=== PATIENT | female | born 2000 | race Two or more races ===

== ENCOUNTER → 2025-01-23 | Outpatient (CLI) | payer MEDICAID, SELFPAY ==
--- NOTE | 2025-01-23 14:15 | XR_ITS ---
Examination: Complete OB ultrasound greater than 14 weeks Date and time of exam: January 23, 2025, 1424 hours INDICATIONS: Supervision high risk . Findings: Viable intrauterine single fetus with single amniotic sac presentation cephalic spine maternal left Cardiac motion 145 BPM Placenta fundal grade 1 Umbilical cord insertion seen Amniotic fluid 8.6 cm Cervix 3.8 cm Right ovary 3.2 cm arterial flow Left ovary 3.0 cm arterial flow. Composite estimated gestational age based on BPD, head circumference, abdominal circumference, femur length is 28 weeks 3 days, estimated weight 1208 g. Survey of intracranial anatomy, spinal anatomy, abdominal anatomy, four-chamber heart performed with no abnormalities identified. Impression: Viable intrauterine gestation cephalic presentation.
== END | disposition home or self-care (01) ==
PROVIDERS: PCP Obstetrics & Gynecology; Referring Provider Obstetrics & Gynecology; Visit Provider Obstetrics & Gynecology
DX: O09.92 Supervision of high risk pregnancy, unspecified, second trimester (principal); Z3A.28 28 weeks gestation of pregnancy
CPT/HCPCS: 76805

== ENCOUNTER 2025-03-25 21:29 | Observation (INO) | payer MEDICAID, SELFPAY ==
[2025-03-25] VITALS (30 sets, daily range): BP systolic 97–106; BP diastolic 53–56; PULSE 72–92; RESP 18–98; TEMP 36.8; O2SAT 94–99; BMI 28.0
--- NOTE | 2025-03-25 22:05 | XR_ITS ---
Examination: Retroperitoneal ultrasound, complete Technique: Multiple high resolution grayscale images of the retroperitoneum obtained, including kidneys and bladder. Exam date and time: March 25, 2025, 10:30 p.m. INDICATIONS: Blood in urine today FINDINGS: Right kidney 11.4 cm renal cortex 2.3 cm Left kidney 11.3 cm renal cortex 1.8 cm No renal calculi, no hydronephrosis No diagnostic visualization bladder IMPRESSION: No renal calculi, no hydronephrosis
--- NOTE | 2025-03-25 22:06 | XR_ITS ---
Examination: Complete OB ultrasound greater than 14 weeks Date and time of exam: March 25, 2025, 10:10 p.m. INDICATIONS: Decreased movement today Findings: Viable intrauterine single fetus with single amniotic sac presentation cephalic Cardiac motion 155 bpm Placenta posterior grade 3 Umbilical cord insertion 3 vessel seen Amniotic fluid 10.5 cm Suspicious for minimal hydronephrosis Cervix 3.7 cm Ovaries obscured by bowel gas. Composite estimated gestational age based on BPD, head circumference, abdominal circumference, femur length is 37 weeks 5 days Estimated weight 3214 g. Survey of intracranial anatomy, spinal anatomy, abdominal anatomy, four-chamber heart performed with no abnormalities identified. Impression: Viable intrauterine gestation cephalic presentation Estimated gestational age 37 weeks 5 days.
[2025-03-25 22:29] LABS: Collection Type, Urine Catheter; Squamous Epithelial Cell,Urine 0 /hpf (0-5)
[2025-03-25 22:35] LABS: Bilirubin,Urine Negative (Negative); Blood,Urine 3+ (Negative); Calcium Oxalate Crystals,Urine 3+; Clarity,Urine Turbid (Clear/Hazy); Color,Urine Dark-Red (Lt Yel-Yel); Glucose, Urine Negative (Negative); Ketones,Urine Trace (Negative); Leukocyte Esterase,Urine Positive (Negative); Nitrite,Urine Negative (Negative); PH,Urine 6.0 (5.0-7.0); Protein,Urine 1+ (Neg - Trace); RBC,Urine 3805 /hpf (0-3); Specific Gravity,Urine 1.019 (1.001-1.035); Urobilinogen,Urine Negative mg/dL (0.0-1.0); WBC,Urine 93 /hpf (0-5)
[2025-03-26 00:02] VITALS: PULSE 72; O2SAT 97
[2025-03-26 00:05] LABS: Basophils # (Auto) 0.0 Thou/mm3 (0.0-0.2); Basophils % (Auto) 0 % (0-2.5); Eosinophils # (Auto) 0.0 Thou/mm3 (0.0-0.5); Eosinophils % (Auto) 1 % (0-10); Hematocrit 31.4 % (36.0-46.0); Hemoglobin 11.1 g/dL (12.0-16.0); Immature Granulocytes Auto 0.05 Thou/mm3 (0.00-0.00); Lymphocytes # (Auto) 2.1 Thou/mm3 (1.0-4.8); Lymphocytes % (Auto) 31 % (10-50); Mean Corpuscular HGB Conc 35.4 g/dl (31.0-37.0); Mean Corpuscular Hemoglobin 32.9 pg (25.0-35.0); Mean Corpuscular Volume 93 fL (80-100); Monocytes # (Auto) 0.4 Thou/mm3 (0.0-0.8); Monocytes % (Auto) 6 % (0-12); Neutrophils # (Auto) 4.0 Thou/mm3 (1.8-7.7); Neutrophils % (Auto) 61 % (37-80); Nucleated Red Blood Cell # 0.00 Thou/mm3 (0.00-0.00); Nucleated Red Blood Cell % 0 /100 WBC (0); Platelet Count 114 Thou/mm3 (140-440); RDW Standard Deviation 44.5 fL (36.4-46.3); Red Blood Count 3.37 Miln/mm3 (4.00-5.20); White Blood Count 6.6 Thou/mm3 (3.6-11.0)
[2025-03-26 00:07] VITALS: PULSE 72; O2SAT 97
[2025-03-26 00:12] VITALS: PULSE 71; O2SAT 99
[2025-03-26 00:17] VITALS: PULSE 73; O2SAT 97
--- NOTE | 2025-03-26 14:00 | ESPR_ITS ---
Documentation for date of: 03/26/25 OB Labor Progress Note Pelvic Exam Dilation (cm): CLOSED Effacement (%): THICK station: -2 Amniotic membrane status: Intact Contractions Monitor mode: External Contraction frequency: none Contraction intensity: Mild Status status: Category l Assessment and Plan Comments: Triage Marla is a 24yo with SIUP at 36+wk presenting to L&D for bloody urine. This occurred for the first time around 1800, has never happened before. She is sure it is not vaginal bleeding. She has no burning/urge/increase frequency of urination. No back pain. No abdominal pain. She notes no painful/regular ctx, no vaginal bleeding, no loss of fluid. Normal movement. PMhx/PNC significant for: -Hx of section x2, last was 06/2023 -New diagnosis UTI -New diagnosis mild gestational thrombocytopenia (hx of this in prior as well) -PNC with Dr. Michelle AGEE negative other than what was described above. Vitals wnl, afebrile General: well developed, well nourished, no acute distress, conversant Cardiac: normal heart rate Lungs: breathing without distress Abdomen: soft, gravid, non-tender, no rebound or guarding Extremities: no edema BLE SCE: closed/thick/high (no vaginal bleeding noted) NST: Reactive, +accels, no decels, mod sai [place]: no ctx pattern Labs: Cath UA shows: 3k RBC, 93 WBC, +LE, 3+ calcium oxylate CBC: Hgb 11.1, plt 114 Radiology: Renal ultrasound: Right kidney 11.4 cm renal cortex 2.3 cm Left kidney 11.3 cm renal cortex 1.8 cm No renal calculi, no hydronephrosis No diagnostic visualization bladder IMPRESSION: No renal calculi, no hydronephrosis ultrasound: Viable intrauterine single fetus with single amniotic sac presentation cephalic Cardiac motion 155 bpm Placenta posterior grade 3 Umbilical cord insertion 3 vessel seen Amniotic fluid 10.5 cm Suspicious for minimal hydronephrosis Cervix 3.7 cm Ovaries obscured by bowel gas. Composite estimated gestational age based on BPD, head circumference, abdominal circumference, femur length is 37 weeks 5 days. Estimated weight 3214 g. Survey of intra-cranial anatomy, spinal anatomy, abdominal anatomy, four-chamber heart performed with no abnormalities identified. Impression: Viable intrauterine gestation cephalic presentation Estimated gestational age 37 weeks 5 days. Assessment: Marla is a 24yo with SIUP at 36+wk with suspected UTI based on UA. No evidence of uterine rupture. Reassuring assessment. Vitals wnl, benign exam. Plan: -Rx keflex 500mg PO QID x 7 days sent to pharmacy -Urine culture ordered, pending. Patient instructed to discuss result with her OB provider at next follow up visit. -Follow up at routine OB visit as scheduled -Return precautions discussed Apple Quinn MD
== END 2025-03-26 00:32 | disposition home or self-care (01) ==
PROVIDERS: Admitting Provider Obstetrics & Gynecology; Visit Provider Obstetrics & Gynecology
DX: O36.8130 Decreased fetal movements, third trimester, not applicable or unspecified (principal); O26.893 Other specified pregnancy related conditions, third trimester; R31.9 Hematuria, unspecified; R10.20 Pelvic and perineal pain unspecified side; Z3A.37 37 weeks gestation of pregnancy
CPT/HCPCS: 36415; 59025; 59899; 76770; 76805; 81001; 85025; 86850; 86900; 86901; 87086; A9270

== ENCOUNTER 2025-04-16 12:16 | Outpatient (CLI) | payer MEDICAID, SELFPAY ==
--- NOTE | 2025-04-16 12:22 | XR_ITS ---
Examination: Complete OB ultrasound greater than 14 weeks Date and time of exam: April 16, 2025, 1236 hours INDICATIONS: Limited care, history blood in urine Findings: Viable intrauterine single fetus with single amniotic sac presentation cephalic Cardiac motion 144 bpm Placenta posterior maternal right grade 3 Umbilical cord insertion 3 vessel seen Amniotic fluid index 16.7 cm spine maternal left Ovaries obscured by bowel gas . Composite estimated gestational age based on BPD, head circumference, abdominal circumference, femur length is 39 weeks 4 days Estimated weight 3683 g. Survey of intracranial anatomy, spinal anatomy, abdominal anatomy, four-chamber heart performed with no abnormalities identified. Impression: Viable intrauterine gestation cephalic presentation.
--- NOTE | 2025-04-16 12:22 | XR_ITS ---
Examination: Biophysical profile, ultrasound Date and time of exam: April 16, 2025, 1231 hours INDICATIONS: Diagnosis limited care, history blood in urine Technique: Multiple transabdominal sonographic images of the pelvis abdomen obtained. Attention is directed to the breathing movement, gross body movement, amniotic fluid volume and tone. Findings: Amniotic fluid index 16.7 cm Total biophysical profile is 8 of 8. breathing movement is 2. Gross body movement is 2. tone is 2. Qualitative amniotic fluid volume is 2 Impression: Biophysical profile is 8 of 8.
[2025-04-16 12:52] VITALS: BP 106/56; PULSE 71; RESP 20; TEMP 36.5; BMI 29.4
[2025-04-16 12:53] VITALS: BP 106/56; PULSE 71
[2025-04-16 13:55] LABS: Basophils # (Auto) 0.0 Thou/mm3 (0.0-0.2); Basophils % (Auto) 0 % (0-2.5); Eosinophils # (Auto) 0.0 Thou/mm3 (0.0-0.5); Eosinophils % (Auto) 0 % (0-10); Hematocrit 33.1 % (36.0-46.0); Hemoglobin 11.6 g/dL (12.0-16.0); Immature Granulocytes Auto 0.06 Thou/mm3 (0.00-0.00); Lymphocytes # (Auto) 1.7 Thou/mm3 (1.0-4.8); Lymphocytes % (Auto) 24 % (10-50); Mean Corpuscular HGB Conc 35.0 g/dl (31.0-37.0); Mean Corpuscular Hemoglobin 33.0 pg (25.0-35.0); Mean Corpuscular Volume 94 fL (80-100); Monocytes # (Auto) 0.5 Thou/mm3 (0.0-0.8); Monocytes % (Auto) 6 % (0-12); Neutrophils # (Auto) 4.8 Thou/mm3 (1.8-7.7); Neutrophils % (Auto) 68 % (37-80); Nucleated Red Blood Cell # 0.00 Thou/mm3 (0.00-0.00); Nucleated Red Blood Cell % 0 /100 WBC (0); Platelet Count 116 Thou/mm3 (140-440); RDW Standard Deviation 46.2 fL (36.4-46.3); Red Blood Count 3.51 Miln/mm3 (4.00-5.20); White Blood Count 7.0 Thou/mm3 (3.6-11.0)
[2025-04-16 14:37] LABS: Syphilis Nonreactive (Nonreactive)
--- NOTE | 2025-04-16 20:11 | PD.LDPN ---
Documentation for date of: 04/16/25 OB Labor Progress Note Pelvic Exam Amniotic membrane status: Intact Contractions Monitor mode: External Contraction frequency: IRRIT/OCC Status status: Category l Assessment and Plan Comments: Triage Note Marla is a 24yo with SIUP at 39&2wk presenting to L&D per Dr. Martinez's instruction to coordinate timing of RLTCS. He had referred her to [place], but she has not yet been able to be seen and since she is now 39wk, delivery is indicated. No regular/painful ctx, no lof, no vaginal bleeding. Normal movement. PMhx/PNC significant for: -Hx of section x2, last was 06/[address] Verma -Late to care at 22wk (dating by sure LMP c/w 28wk ultrasound) -Mild gestational thrombocytopenia (hx of this in prior as well)- plt on 04/16: 116, stable -Diagnosis of UTI on 03/26 when presented with episode of bloody urine, treated with keflex. Ucx no growth. -PNC with Dr. Martinez ROS negative other than what was described above. Vitals wnl, afebrile General: well developed, well nourished, no acute distress, conversant Cardiac: normal heart rate Lungs: breathing without distress Abdomen: soft, gravid, non-tender, no rebound or guarding Extremities: no edema BLE NST: Reactive, +accels, no decels, mod sai [place]: irregular ctx Labs: hgb 11.6 plt 116 O pos RPR non-reactive Radiology: Examination: Complete OB ultrasound greater than 14 weeks Date and time of exam: April 16, 2025, 1236 hours INDICATIONS: Limited care, history blood in urine Findings: Viable intrauterine single fetus with single amniotic sac presentation cephalic Cardiac motion 144 bpm Placenta posterior maternal right grade 3 Umbilical cord insertion 3 vessel seen Amniotic fluid index 16.7 cm spine maternal left Ovaries obscured by bowel gas Composite estimated gestational age based on BPD, head circumference, abdominal circumference, femur length is 39 weeks 4 days Estimated weight 3683 g. Survey of intracranial anatomy, spinal anatomy, abdominal anatomy, four-chamber heart performed with no abnormalities identified. Impression: Viable intrauterine gestation cephalic presentation. --- Examination: Biophysical profile, ultrasound Date and time of exam: April 16, 2025, 1231 hours INDICATIONS: Diagnosis limited care, history blood in urine Technique: Multiple transabdominal sonographic images of the pelvis abdomen obtained. Attention is directed to the breathing movement, gross body movement, amniotic fluid volume and tone. Findings: Amniotic fluid index 16.7 cm Total biophysical profile is 8 of 8. breathing movement is 2. Gross body movement is 2. tone is 2. Qualitative amniotic fluid volume is 2 Impression: Biophysical profile is 8 of 8. Assessment: Marla is a 24yo with SIUP at 39&2wk with reassuring status today. Growth concordant with stated gestational age. Vitals wnl, benign exam. Plan: -Due to very busy L&D unit and full unit, unable to perform RLTCS today. Discussed with Dr. Peres who is amenable to performing RLTCS tomorrow at 1730. Patient was booked for that time and instructed to be NPO 8 hours prior, arrive 2 hours prior to scheduled time. -Return precautions discussed Apple Quinn MD
== END 2025-04-16 14:04 | disposition home or self-care (01) ==
LOC: S4S1 12:18 → S4SX 12:19
PROVIDERS: Referring Provider Obstetrics & Gynecology; Visit Provider Obstetrics & Gynecology
DX: O09.33 Supervision of pregnancy with insufficient antenatal care, third trimester (principal); Z3A.39 39 weeks gestation of pregnancy
CPT/HCPCS: 36415; 59025; 76805; 76819; 85025; 86780; 86850; 86900; 86901

== ENCOUNTER 2025-04-17 15:45 | Inpatient (IN) | payer MEDICAID, SELFPAY ==
[2025-04-17] VITALS (39 sets, daily range): BP systolic 98–116; BP diastolic 52–70; PULSE 65–90; RESP 16–97; TEMP 37.1; O2SAT 98–100; BMI 31.3
[2025-04-17] MEDS: RINGERS LACTATED 1000 ML 1,000 ML 999 ML IV (16:44)
[2025-04-17 17:22] LABS: Collection Type, Urine Clean Catch; WBC,Urine 0 /hpf (0-5)
[2025-04-17 17:37] LABS: Bilirubin,Urine Negative (Negative); Blood,Urine 3+ (Negative); Color,Urine Dark-Brown (Lt Yel-Yel); Glucose, Urine Negative (Negative); Ketones,Urine Trace (Negative); Leukocyte Esterase,Urine Positive (Negative); Nitrite,Urine Negative (Negative); PH,Urine 7.0 (5.0-7.0); Protein,Urine 2+ (Neg - Trace); RBC,Urine 8068 /hpf (0-3); Specific Gravity,Urine 1.026 (1.001-1.035); Squamous Epithelial Cell,Urine 6 /hpf (0-5); Urobilinogen,Urine Negative mg/dL (0.0-1.0)
[2025-04-17 17:38] LABS: Clarity,Urine Cloudy (Clear/Hazy)
--- NOTE | 2025-04-17 18:12 | PD.LDHP ---
Documentation for date of: 04/17/25 OB Labor/Induct. HPI History of Present Illness Chief complaint: Hematuria : 3 Para: 2 Term pregnancies: 2 pregnancies: 0 Living children: 2 History of Abortions: Spontaneous and Elective: 0 History of Vaginal deliveries: 0 History of sections: Yes History of : No VEL: 04/21/25 Gestational Age (weeks): 39 Gestational Age (days): 4 History of present illness: Vianca is a 24-year-old 3 para 2-0-0-2 at 39 weeks and 4 days with estimated due date of 04/21/2025 who is presenting to labor and delivery with complaints of hematuria. Patient has a history of 2 sections, she was recently treated for UTI and she just finished her course of antibiotics. Patient was supposed to present for scheduled repeat tomorrow morning at 7:30 AM. She denies any leakage of fluid or vaginal bleeding. She reports adequate movements. She denies any fevers or chills. Patient received care at the [facility]. She was transferred to the [facility] INSTRUMENT SUPERVISOR clinic for delivery but she was never able to establish care. All records were reviewed as scanned in History of Present Adequate Care: Yes Past Medical History Surgical History SURGICAL: Positive Section Meds Home Medications and Allergies Home Medications ?Medication ?Instructions ?Recorded ?Confirmed ?Type vits no.130-ferrous fum 1 tab PO QDAY 06/24/23 04/16/25 History 27 mg iron-folic acid 800 mcg tablet ( Vitamin) Allergies Allergy/AdvReac Type Severity Reaction Status Date / Time No Known Allergies Allergy Verified 04/16/25 14:44 OB Exam Physical Exam Vital signs: Temp Pulse Resp BP Pulse Ox 98.8 F 85 16 111/70 99 04/17/25 15:45 04/17/25 18:01 04/17/25 15:45 04/17/25 18:01 04/17/25 18:11 Constitutional Constitutional: no acute distress Routine HEENT Exam Head: Present normocephalic and atraumatic Eye: Present EOMI and PERRL ENT: Present mucous membranes moist Routine Neck Exam Neck: Present supple and trachea midline Routine Cardiovascular Exam Cardiovascular: Present RRR Routine Abdominal Exam Abdominal: Present soft and normoactive bowel sounds Detailed Labor and Delivery Exam Baseline heart rate: 135 monitor accelerations: 15x15 monitor decelerations: None Routine Extremities Exam Extremities: Present full ROM Routine Skin Exam Skin: Present intact, dry and warm Routine Neurological Exam Neurological: Present alert, oriented X3 and CN II-XII intact Routine Psychiatric Exam Psychiatric: Present normal affect and normal thought process OB Results Labs Labs: Urine 04/17/25 Range/Units 17:14 Urine Color Dark-Brown (Lt Yel-Yel) Urine Clarity Cloudy A (Clear/Hazy) Urine pH 7.0 (5.0-7.0) Ur Specific [place] 1.026 (1.001-1.035) Urine Protein 2+ A (Neg - Trace) Urine Glucose (UA) Negative (Negative) OB Assessment & Plan Assessment and Plan (1) UTI in , antepartum: Status: Acute Assessment and plan: Start IV Ancef 2 g every 8 hours (2) Previous delivery affecting : Status: Acute Assessment and plan: Admit to inpatient status for repeat low transverse IV access, CBC, type and screen, LR at 125, RPR, COVID-19 test GBS negative Ancef 2 g prior to surgery start Billy catheter to drainage SCDs for DVT prophylaxis Anesthesia to preop for spinal anesthesia Scheduled for surgery.
[2025-04-17] MEDS: ceFAZolin/D5W 2 GM IV 2 GM/100 ML BAG IV ×2 (18:26→23:42)
[2025-04-17] MEDS: RINGERS LACTATED 1000 ML 1,000 ML 100 ML IV ×2 (18:27→23:24)
[2025-04-17 22:49] LABS: Amphetamine/Metham Scrn,Ur OB Negative (Negative); Benzoylecgonine Screen, Ur OB Negative (Negative); Opiate Screen,Urine OB Negative (Negative); THC Screen,Urine OB Negative (Negative)
[2025-04-17] MEDS: CITRIC ACID/SODIUM CITR 15 ML UDC (BICITRA) 30 ML PO (23:42)
[2025-04-17] MEDS: FAMOTIDINE INJ 10 MG/ML VIAL 2 ML 20 MG IV (23:42)
[2025-04-18] VITALS (12 sets, daily range): BP systolic 95–119; BP diastolic 51–76; PULSE 61–78; RESP 15–24; TEMP 36.4–36.8; O2SAT 96–98
--- NOTE | 2025-04-18 00:51 | PD.GYNPROC ---
Operative Note - ROBOTICS SYSTEMS ENGINEER Procedure Date of procedure: 04/18/25 Procedure Performed: Repeat low-transverse section Indication: 24-year-old G3, P2 at 39 weeks and 5 days with history of 2 sections Anesthesia type: Spinal Procedure description: Informed consent was obtained and the patient was taken to the operating room. Identity was confirmed by double identifiers and she was placed on the operating table. Spinal anesthesia was administered and she was positioned in the supine position. The abdomen and perineum were prepped in the usual sterile fashion and a Billy catheter was placed to continuous drainage. Sterile drapes were applied. The incision site was tested for adequacy of anesthesia. A Pfannenstiel skin incision was made with a scalpel and the thick keloid scar was excised using a combination of sharp dissection and electrocautery, dissection was now carried to the subcutaneous fat up to the rectus fascia. The rectus fascia was incised on either side of the midline and the incisions were extended bilaterally. The fascia was gently dissected off the ventral surface of the rectus muscle both superiorly and inferiorly. The rectus bellies were gently in the midline and the peritoneum was identified and entered bluntly using the surgeon's finger. The peritoneal opening was now stretched to create an adequate opening for access to the uterus. Maximo O-ring retractor was placed for adequate visualization. The anterior surface of the uterus was palpated. The bladder reflection was identified and a Darin Virk low transverse uterine incision was made in the lower uterine segment taking care to avoid the bladder. Uterine entry was accomplished bluntly and the opening was stretched to create adequate room. The amniotic membranes were now ruptured and clear amniotic fluid was released. The fetus was noted to be in the vertex position. The head was gently elevated out of the maternal pelvis using the mighty VAC vacuum and the rest of the shoulders and body were delivered by gentle fundal pressure. 2 loops of nuchal cord were noted and they were reduced prior to delivery. Umbilical cord was doubly clamped, divided and the infant was handed over to the waiting team. Cord gas samples were obtained. The placenta was delivered by gentle traction on the umbilical cord. The interior of the uterus was now thoroughly cleaned of all blood and debris and membranes. The hysterotomy angles were grasped by a pair of Allis clamps and the hysterotomy was closed using 1 Monocryl suture in 2 layers. The first layer was used to approximate the muscle in a running locked fashion, the second layer was used to approximate the thickness of the myometrium and uterine serosa in an imbricated manner. Once the repair was completed the hysterotomy was inspected and noted to be adequately hemostatic. The hysterotomy was once again inspected and hemostasis was noted to be satisfactory. The Maximo retractor was now removed. The peritoneal edges were re approximated. The rectus muscles were re approximated. The rectus fascia was now repaired using 0 Vicryl suture in a running fashion. The subcutaneous layer was now copiously irrigated using warm normal saline. All bleeding points were cauterized using the Bovie. The subcutaneous fat was closed using 2 0 STRATAFIX the skin was closed using INSORB in a subcuticular fashion. The skin was cleaned and a sterile dressing was applied. The patient was now undraped, the abdomen and back were thoroughly cleaned and she was transferred to the recovery room in a stable and awake condition. The patient tolerated the entire procedure well. No complications were encountered. All instrument, sponge and lap counts were correct x2. Specimen: none Estimated blood loss (ml): 600 Complications: none Surgical staff Operation Date: 04/18/25 00:00 <No data on this case meets the specified criteria> Diagnosis Discharge Diagnosis (1) Previous delivery affecting : Status: Acute (2) UTI in , antepartum: Status: Acute (3) Gestational thrombocytopenia without hemorrhage: Status: Acute Problem List Completed Was Problem List Reviewed/Reconciled?: Yes
[2025-04-18] MEDS: OXYTOCIN in NS 20 units 20 UNIT/1,000 ML BAG 125 UNIT IV (05:27)
[2025-04-18 05:56] LABS: Basophils # (Auto) 0.0 Thou/mm3 (0.0-0.2); Basophils % (Auto) 0 % (0-2.5); Eosinophils # (Auto) 0.0 Thou/mm3 (0.0-0.5); Eosinophils % (Auto) 0 % (0-10); Hematocrit 33.3 % (36.0-46.0); Hemoglobin 11.4 g/dL (12.0-16.0); Immature Granulocytes Auto 0.06 Thou/mm3 (0.00-0.00); Lymphocytes # (Auto) 1.1 Thou/mm3 (1.0-4.8); Lymphocytes % (Auto) 10 % (10-50); Mean Corpuscular HGB Conc 34.2 g/dl (31.0-37.0); Mean Corpuscular Hemoglobin 32.0 pg (25.0-35.0); Mean Corpuscular Volume 94 fL (80-100); Monocytes # (Auto) 0.2 Thou/mm3 (0.0-0.8); Monocytes % (Auto) 2 % (0-12); Neutrophils # (Auto) 9.5 Thou/mm3 (1.8-7.7); Neutrophils % (Auto) 88 % (37-80); Nucleated Red Blood Cell # 0.00 Thou/mm3 (0.00-0.00); Nucleated Red Blood Cell % 0 /100 WBC (0); Platelet Count 116 Thou/mm3 (140-440); RDW Standard Deviation 45.5 fL (36.4-46.3); Red Blood Count 3.56 Miln/mm3 (4.00-5.20); White Blood Count 10.8 Thou/mm3 (3.6-11.0)
[2025-04-18] MEDS: KETOROLAC INJ 30 MG/ML VIAL IVP (12:36)
[2025-04-18] MEDS: SODIUM CHLORIDE 0.9% 500 ML 500 ML 999 ML IV (14:11)
[2025-04-18 14:35] LABS: Basophils # (Auto) 0.0 Thou/mm3 (0.0-0.2); Basophils % (Auto) 0 % (0-2.5); Eosinophils # (Auto) 0.0 Thou/mm3 (0.0-0.5); Eosinophils % (Auto) 0 % (0-10); Hematocrit 27.5 % (36.0-46.0); Hemoglobin 9.6 g/dL (12.0-16.0); Immature Granulocytes Auto 0.05 Thou/mm3 (0.00-0.00); Lymphocytes # (Auto) 1.2 Thou/mm3 (1.0-4.8); Lymphocytes % (Auto) 11 % (10-50); Mean Corpuscular HGB Conc 34.9 g/dl (31.0-37.0); Mean Corpuscular Hemoglobin 32.5 pg (25.0-35.0); Mean Corpuscular Volume 93 fL (80-100); Monocytes # (Auto) 0.6 Thou/mm3 (0.0-0.8); Monocytes % (Auto) 6 % (0-12); Neutrophils # (Auto) 9.3 Thou/mm3 (1.8-7.7); Neutrophils % (Auto) 83 % (37-80); Nucleated Red Blood Cell # 0.00 Thou/mm3 (0.00-0.00); Nucleated Red Blood Cell % 0 /100 WBC (0); Platelet Count 128 Thou/mm3 (140-440); RDW Standard Deviation 44.8 fL (36.4-46.3); Red Blood Count 2.95 Miln/mm3 (4.00-5.20); White Blood Count 11.1 Thou/mm3 (3.6-11.0)
[2025-04-19 04:30] VITALS: BP 100/59; PULSE 85; RESP 20; TEMP 36.7; O2SAT 98
[2025-04-19] MEDS: HYDROcodone/APAP 5/325 TABLET 1 TAB PO (04:57)
[2025-04-19] MEDS: SIMETHICONE 80 MG CHEW PO (04:57)
[2025-04-19 05:58] LABS: Basophils # (Auto) 0.0 Thou/mm3 (0.0-0.2); Basophils % (Auto) 0 % (0-2.5); Eosinophils # (Auto) 0.0 Thou/mm3 (0.0-0.5); Eosinophils % (Auto) 0 % (0-10); Hematocrit 25.5 % (36.0-46.0); Hemoglobin 8.9 g/dL (12.0-16.0); Immature Granulocytes Auto 0.05 Thou/mm3 (0.00-0.00); Lymphocytes # (Auto) 2.8 Thou/mm3 (1.0-4.8); Lymphocytes % (Auto) 31 % (10-50); Mean Corpuscular HGB Conc 34.9 g/dl (31.0-37.0); Mean Corpuscular Hemoglobin 33.5 pg (25.0-35.0); Mean Corpuscular Volume 96 fL (80-100); Monocytes # (Auto) 0.5 Thou/mm3 (0.0-0.8); Monocytes % (Auto) 6 % (0-12); Neutrophils # (Auto) 5.7 Thou/mm3 (1.8-7.7); Neutrophils % (Auto) 63 % (37-80); Nucleated Red Blood Cell # 0.00 Thou/mm3 (0.00-0.00); Nucleated Red Blood Cell % 0 /100 WBC (0); Platelet Count 95 Thou/mm3 (140-440); RDW Standard Deviation 46.9 fL (36.4-46.3); Red Blood Count 2.66 Miln/mm3 (4.00-5.20); White Blood Count 9.0 Thou/mm3 (3.6-11.0)
--- NOTE | 2025-04-19 07:55 | PD.LDPPPRG ---
Subjective Subjective Interval history: Delivery type: Patient doing well this morning. No acute complaints. Ambulating, tolerating p.o., and voiding without difficulty. HTN/Pre-E screen negative: No CP, SOB, RENDON, visual changes, RUQ pain. : Yes Lochia: diminishing Bowel: Flatus + / BM + UOP: Voiding freely Exam Vital Signs Temp Pulse Resp BP Pulse Ox O2 Del Method 98.1 F 85 20 100/59 L 98 Room Air 04/19/25 04:30 04/19/25 04:30 04/19/25 04:30 04/19/25 04:30 04/19/25 04:30 04/19/25 04:30 Constitutional Constitutional: no acute distress Routine HEENT Exam Head: Present normocephalic and atraumatic Eye: Present EOMI and PERRL ENT: Present mucous membranes moist Routine Neck Exam Neck: Present supple and trachea midline Routine Respiratory Exam Respiratory: Present chest non-tender, lungs clear, normal breath sounds and no resp distress Routine Cardiovascular Exam Cardiovascular: Present RRR Routine Abdominal Exam Abdominal: Present soft and normoactive bowel sounds Routine Extremities Exam Extremities: Present full ROM Routine Skin Exam Skin: Present intact, dry and warm Routine Neurological Exam Neurological: Present alert, oriented X3 and CN II-XII intact Routine Psychiatric Exam Psychiatric: Present normal affect and normal thought process Objective Labs 04/19/25 04:25 Labs: Laboratory Results - last 24 hr 04/18/25 04/19/25 14:16 04:25 WBC 11.1 H 9.0 RBC 2.95 L 2.66 L Hgb 9.6 L 8.9 L Hct 27.5 L 25.5 L MCV 93 96 MCH 32.5 33.5 MCHC 34.9 34.9 RDW Std Deviation 44.8 46.9 H Plt Count 128 L 95 L D Neut % (Auto) 83 H 63 Lymph % (Auto) 11 31 [place] % (Auto) 6 6 Eos % (Auto) 0 0 Baso % (Auto) 0 0 Neut # (Auto) 9.3 H 5.7 Lymph # (Auto) 1.2 2.8 [place] # (Auto) 0.6 0.5 Eos # (Auto) 0.0 0.0 Baso # (Auto) 0.0 0.0 Immature Gran # (Auto) 0.05 H 0.05 H Absolute Nucleated RBC 0.00 0.00 Immature Gran % 0 1 H Nucleated RBC % 0 0 Assessment & Plan Problem List (1) Previous delivery affecting : Status: Acute (2) UTI in , antepartum: Status: Acute (3) Gestational thrombocytopenia without hemorrhage: Status: Acute (4) delivery delivered: Status: Acute Assessment and plan: 1. Continue routine /post-op care 2. Labs reviewed, cbc appropriate 3. Remove dressing/Billy 4. Encourage to ambulate, shower 5. Encourage PO intake, breast feeding Time Spent With Patient Time: Total time spent is greater than 50% in coordination of care (as documented) at patient's floor/unit and/or counseling patient:
[2025-04-19 08:00] VITALS: BP 96/53; PULSE 80; RESP 18; TEMP 36.7; O2SAT 98
[2025-04-19] MEDS: DOCUSATE SOD 100 MG CAPSULE PO (08:05)
--- NOTE | 2025-04-19 10:09 | PC.SS ---
chemical plant worker (UNIQUE) Cassie met with the patient and partner at bedside following a social service consult for late to care at 22 weeks. Per chart review, the patient was BIB self at 39 weeks and 4 days with an estimated due date of 04/21/2025, who is presenting to labor and delivery with complaints of hematuria. SW met with the patient and partner at the bedside and introduced self, role, and reason for the consult. SW discussed the limits of confidentially. Patient is alert and oriented to person, place, time, and situation. Patient verbally agreed to participate in the assessment with the partner at the bedside. Patient presented with good eye contact, cooperative, and appropriate. Patient designated her partner, Nicholas Arechiga, , as her surrogate medical decision maker. Patient is Marla Price, 24 y/o [place]-speaking female residing with partner and daughters at [address] [place] [address]. Patient is currently unemployed and being financially supported by her partner. Patient is independent and able to attend to her ADLs. Patient has [facility] [employer]. Patient has no history of substance abuse. No history of abuse/neglect. Patient has no hx or involvement with CWS. Patient has no hx of mental health diagnoses. Patient has no hx of visual/auditory hallucinations. Patient denied current suicidal/homicidal ideation. Patient has no hx of depression. SW educated the patient on baby blues and depression; signs and symptoms, and how to seek help as soon as possible. The patient received late care due to local clinics were unable to accommodate the patient due to an OB shortage/overly impacted. The patient started receiving care at about four months at [facility] until delivery. At this time, a CWS report is not warranted due to no suspicion of neglect or abuse. Patient delivered a baby girl, Charity Price, the patient's third baby; the patient has a 5 y/o and 1 y/o girl. Baby will be seeing a gill net stringer from [facility]. Baby's father is the patient's partner, Nicholas Arechiga, who is present in the room and involved in the baby's care. Patient is already connected with [facility]; patient was advised to follow up with them to update them on the baby's . The patient was also advised to follow up with [employer] to request insurance for the baby. Patient has a car seat at bedside and all baby necessities at bedside. Discharge plan: Patient will be discharged home with partner support. Partner will provide transportation?no needs at this time. SW provided community resources and [facility].
[2025-04-19 12:00] VITALS: BP 94/56; PULSE 83; RESP 14; TEMP 37; O2SAT 98
[2025-04-19 16:00] VITALS: BP 96/56; PULSE 78; RESP 14; TEMP 36.6; O2SAT 98
[2025-04-19 20:00] VITALS: BP 103/64; PULSE 80; RESP 18; TEMP 36.8; O2SAT 99
[2025-04-19] MEDS: IBUPROFEN TAB 400 MG TABLET 800 MG PO (20:11)
[2025-04-20] VITALS: BP 97/56; PULSE 72; RESP 15; TEMP 36.9; O2SAT 99
[2025-04-20 04:00] VITALS: BP 92/55; PULSE 81; RESP 18; TEMP 36.9; O2SAT 98
[2025-04-20 07:12] VITALS: BP 95/56; PULSE 73; RESP 18; TEMP 36.6; O2SAT 98
[2025-04-20] MEDS: HYDROcodone/APAP 5/325 TABLET 1 TAB PO ×2 (07:18→14:52)
[2025-04-20] MEDS: DOCUSATE SOD 100 MG CAPSULE PO (08:42)
[2025-04-20 13:31] LABS: Basophils # (Auto) 0.0 Thou/mm3 (0.0-0.2); Basophils % (Auto) 0 % (0-2.5); Eosinophils # (Auto) 0.0 Thou/mm3 (0.0-0.5); Eosinophils % (Auto) 1 % (0-10); Hematocrit 28.0 % (36.0-46.0); Hemoglobin 9.3 g/dL (12.0-16.0); Immature Granulocytes Auto 0.03 Thou/mm3 (0.00-0.00); Lymphocytes # (Auto) 2.2 Thou/mm3 (1.0-4.8); Lymphocytes % (Auto) 33 % (10-50); Mean Corpuscular HGB Conc 33.2 g/dl (31.0-37.0); Mean Corpuscular Hemoglobin 31.8 pg (25.0-35.0); Mean Corpuscular Volume 96 fL (80-100); Monocytes # (Auto) 0.3 Thou/mm3 (0.0-0.8); Monocytes % (Auto) 5 % (0-12); Neutrophils # (Auto) 4.1 Thou/mm3 (1.8-7.7); Neutrophils % (Auto) 61 % (37-80); Nucleated Red Blood Cell # 0.00 Thou/mm3 (0.00-0.00); Nucleated Red Blood Cell % 0 /100 WBC (0); Platelet Count 112 Thou/mm3 (140-440); RDW Standard Deviation 48.0 fL (36.4-46.3); Red Blood Count 2.92 Miln/mm3 (4.00-5.20); White Blood Count 6.7 Thou/mm3 (3.6-11.0)
--- NOTE | 2025-04-20 14:24 | PD.LDDS ---
DS: Providers Provider Date of admission: 04/17/25 18:04 Primary care physician: Physician No Primary/Family Admitting Provider: Dylan Peres MD Attending Provider on Admission: Dylan Peres MD Consults: 04/18/25 02:45 Referral Routine Comment: Attending Provider on DC: Mabel Carlos MD Discharging Provider: Mabel Carlos MD Anticipated date of discharge: 04/20/25 DS: Diagnosis Discharge Diagnosis (1) delivery delivered: Status: Acute (2) Gestational thrombocytopenia without hemorrhage: Status: Acute (3) Previous delivery affecting : Status: Acute (4) Anemia associated with acute blood loss: Status: Acute Problem List Completed Was Problem List Reviewed/Reconciled?: Yes Summary/Hosp Course Brief History: Vianca is a 24-year-old 3 para 2-0-0-2 at 39 weeks and 4 days with estimated due date of 04/21/2025 who is presenting to labor and delivery with complaints of hematuria. Patient has a history of 2 sections, she was recently treated for UTI and she just finished her course of antibiotics. Patient was supposed to present for scheduled repeat tomorrow morning at 7:30 AM. She denies any leakage of fluid or vaginal bleeding. She reports adequate movements. She denies any fevers or chills. Patient received care at the [facility]. She was transferred to the [facility] for delivery but she was never able to establish care. All records were reviewed as scanned in [facility] Delivery Method: Low Transverse Episiotomy Description: None Procedures: Procedures Operation Date: 04/18/25 00:00 <No data on this case meets the specified criteria> Time Spent with Patient Time attestation: Total time spent providing and/or coordinating discharge services: Exam Vital Signs Temp Pulse Resp BP Pulse Ox O2 Del Method 97.8 F 73 18 95/56 L 98 Room Air 04/20/25 07:12 04/20/25 07:12 04/20/25 07:12 04/20/25 07:12 04/20/25 07:12 04/20/25 07:12 Narrative Exam alert x3 chest clear CVS RRR NO thyromegaly Uterus is nontender Uterus is firm/ appropriate size Just below the umbilicus Bowel sounds present Abdomen soft no hernias noted/no CVAT Incision CDI No drainage Appropriately tender No calf tenderness Edema mild Discharge Plan Problem List Was Problem List Reviewed/Reconciled?: Yes Plan Patient condition on transfer: Stable Prescriptions/Referrals Prescriptions/Med Rec: New hydrocodone-acetaminophen 5-325 mg Tablet 1 tab PO Q4HR MDD 3 PRN (Reason: Patient rated pain 7 to 8) Qty: 10 0RF ibuprofen 400 mg Tablet 800 mg PO Q8HR PRN (Reason: Pain Scale 4-6 (Moderate) Qty: 30 0RF ferrous sulfate 325 mg (65 mg iron) tablet 325 mg PO QDAY Qty: 60 0RF No Action Vitamin 27 mg iron- 800 mcg tablet 1 tab PO QDAY Referrals: No Primary/Family,Physician [Primary Care Provider] Patient/Caregiver Discharge Instructions Education Materials: How to Breastfeed, C Section Dc, Change Expect Parents, Thrombocytopenia Print Language: English Activity Restrictions/Additional Instructions: FOLLOW UP WITH YOUR PROVIDER IN 1 WEEK Stand Alone Forms: DC from Surgery Vaccines Vaccines Given During Stay: MMR Discharge Order Discharge Orders: Discharge (Routine); Ordered 04/20/25 Ordered By: Mabel Carlos Planned Discharge Date 04/20/25
== END 2025-04-20 15:50 | disposition home or self-care (01) | DRG 540 ==
LOC: S4SX 22:54 → S4NX 04-18 13:28 → S4SX 04-20 05:50
PROVIDERS: Obstetrics & Gynecology; Admitting Provider Obstetrics & Gynecology; Visit Provider Obstetrics & Gynecology
PROC: (CPT 59514; principal; 2025-04-17 23:45)
PROC: 10D00Z1 Extraction of Products of Conception, Low, Open Approach (ICD-10-PCS; CPT 59514; principal; 2025-04-18 07:30)
DX: O34.211 Maternal care for low transverse scar from previous cesarean delivery (principal); O99.12 Other diseases of the blood and blood-forming organs and certain disorders involving the immune mechanism complicating childbirth; D69.59 Other secondary thrombocytopenia; Z37.0 Single live birth; Z3A.39 39 weeks gestation of pregnancy; O90.81 Anemia of the puerperium; D62 Acute posthemorrhagic anemia; Z87.440 Personal history of urinary (tract) infections
CPT/HCPCS: 36415; 59025; 80307; 81001; 85025; 86850; 86900; 86901; 86923; 90707; 94762; A4217; A4314; A4649; J0689; J1100; J1885; J2210; J2405; J2590; J3490; J7120; J7999; A9270